=== PATIENT | male | born 1950 | race Caucasian/White ===

== ENCOUNTER → 2020-10-23 | Outpatient (CLI) | payer MEDICARE, OTHER ==
[~2020-10-23] MED LIST: ACIPHEX 20 MG T20 M1 PO; ADULT LOW DOSE81 MG PO; ALLEGRA180 MG PO; AVODART0.5 MG PO; C-500500 MG PO; CALCIUM 600 +1 EAC1 PO; CENTRUM SILVER1 EAC1 PO; COLACE100 MG PO; COQ-10100 MG PO; ENOXAPARIN30 MG/0.1 INJECTION; FISH OIL 1,0001 EAC7 PO; HYDROCODON-ACE1 EAC7 PO; HYTRIN 5 M5 MG/1 CAP PO; MAGNESIUM100 MG PO; NIACIN 500 MG500 M1 PO; OSTEO BI-FLEX1 EACH PO; POTASSIUM99 M1 PO; ROXICODONE5 M1 PO; SIMVASTATIN40 MG PO; TERAZOSIN HCL5 MG PO
[2020-10-23 10:08] LABS: ABSOLUTE EOSINOPHILS 0.2 thou/uL (0.0-0.7); ABSOLUTE LYMPHOCYTES 1.9 thou/uL (0.8-5.3); ABSOLUTE MONOCYTES 0.5 thou/uL (0.0-1.2); ABSOLUTE NEUTROPHILS 3.3 thou/uL (1.6-8.1); BASOPHILS 0.6 %; HEMATOCRIT 41.9 % (42.0-52.0); HEMOGLOBIN 14.1 gm/dL (14.0-18.0); LYMPHOCYTES 31.7 %; MCH 30.4 pg (26.0-34.0); MCHC 33.7 g/dL (28.0-37.0); MCV 90.1 fL (80.0-100.0); MONOCYTES 8.1 %; MPV 6.3 fl. (7.2-11.1); NUCLEATED RBCS 0 /100WBC; PLATELET COUNT* 241 thou/uL (150-400); POLYS 55.6 %; RBC 4.65 mil/uL (4.50-6.00); RDW-CV 13.8 % (10.5-14.5); WBC 5.9 thou/uL (4.0-11.0)
[2020-10-23 10:24] LABS: CALCIUM 9.5 mg/dL (8.5-10.1); CREATININE 1.1 mg/dL (0.6-1.3); POTASSIUM 4.3 mmol/L (3.5-5.1)
[2020-10-23 11:10] LABS: ESR (SEDRATE) 2 mm/hr (0-20)
--- NOTE | 2020-10-23 13:05 | EKG ---
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: : 1950 Requested By: Nathan Jack Order Number: [id number] Reading MD: Tacos Gray Measurements Intervals [place] Rate: 52 P: 52 ND: 166 QRS: 49 QRSD: 96 T: 31 QT: 431 QTc: 401 Interpretive Statements Sinus rhythm RSR' in V1 or V2, right VCD Compared to ECG 05/21/2012 09:41:29 RSR' in V1 or V2 now present Sinus bradycardia no longer present Electronically Signed On 10-23-2020 13:05:09 CDT by Tacos Gray [email or web address] <ELECTRONICALLY SIGNED> By: Tacos Gray MD, [facility] 10/23/20 1305 1017 1017 Tacos Gray MD, [facility] /EPI
== END ==
LOC: M.LAB 09:52
PROVIDERS: ATTEND Orthopaedic Surgery
DX: Z01.812 Encounter for preprocedural laboratory examination (principal); Z20.822 Contact with and (suspected) exposure to COVID-19; M17.12 Unilateral primary osteoarthritis, left knee; I49.9 Cardiac arrhythmia, unspecified

== ENCOUNTER 2020-10-30 06:15 | Inpatient (IN) | payer MEDICARE, OTHER ==
[~2020-10-30] VITALS: Ht 170.2 cm; Wt 79.4 kg
[~2020-10-30 06:15] MED LIST changes: -ACIPHEX 20 MG T20 M1 PO; +ACIPHEX 20 MG T20 MG PO; +ALLEGRA ALLERG180 MG PO; -ALLEGRA180 MG PO; -FISH OIL 1,0001 EAC7 PO; +FISH OIL 1,0001 EAC9 PO
[2020-10-30 11:06] VITALS: BP 106/58
[2020-10-30 16:56] VITALS: BP 112/62
[2020-10-30 21:00] VITALS: BP 112/68
[2020-10-31 00:10] VITALS: BP 121/63
[2020-10-31 04:33] VITALS: BP 114/71
[2020-10-31 05:48] LABS: HEMATOCRIT 36.3 % (42.0-52.0); HEMOGLOBIN 12.2 gm/dL (14.0-18.0); MCH 30.5 pg (26.0-34.0); MCHC 33.5 g/dL (28.0-37.0); MCV 91.1 fL (80.0-100.0); MPV 6.9 fl. (7.2-11.1); RBC 3.99 mil/uL (4.50-6.00)
[2020-10-31 06:11] LABS: ALBUMIN 3.3 g/dL (3.4-5.0); CREATININE 0.9 mg/dL (0.6-1.3); POTASSIUM 3.9 mmol/L (3.5-5.1); TOTAL BILIRUBIN 0.7 mg/dL (<0.1-1.0); TOTAL PROTEIN 6.3 g/dL (6.4-8.2)
[2020-10-31] MEDS ORDERED: MEDROLDOSEPACK PO (06:17)
[2020-10-31 07:50] VITALS: BP 134/64
[2020-10-31] MEDS ORDERED: COLACE100 MG PO (10:27)
[2020-10-31 15:31] VITALS: BP 117/67
[2020-10-31 20:24] VITALS: BP 137/69
[2020-11-01 04:33] LABS: HEMATOCRIT 31.2 % (42.0-52.0); MCH 31.5 pg (26.0-34.0); MCHC 35.1 g/dL (28.0-37.0); MCV 89.9 fL (80.0-100.0); MPV 6.3 fl. (7.2-11.1); RBC 3.47 mil/uL (4.50-6.00); RDW-CV 13.5 % (10.5-14.5); WBC 9.8 thou/uL (4.0-11.0)
[2020-11-01 05:16] LABS: ALBUMIN 2.9 g/dL (3.4-5.0); CALCIUM 8.3 mg/dL (8.5-10.1); CREATININE 0.9 mg/dL (0.6-1.3); POTASSIUM 4.4 mmol/L (3.5-5.1); TOTAL BILIRUBIN 0.7 mg/dL (<0.1-1.0); TOTAL PROTEIN 6.1 g/dL (6.4-8.2)
[2020-11-01 07:30] VITALS: BP 136/70
[2020-11-01 11:22] VITALS: BP 136/70
--- NOTE | 2020-11-01 13:58 | OP ---
[facility] [place] [address] [place] [address] OPERATIVE REPORT Name: AZUCENA IRBY Room: [address] IN M.R.#: [id number] Admission: 10/31/20 Attend Phys: Lalita Goodson Discharge: Date of : 50 Report #: [id number] THIS REPORT FOR: cc: Brice Sarah MD, Usman MD Orth, Charles DO ~ DICTATED BY: Nilesh Holcomb DO DATE OF SERVICE: 10/30/2020 PREOPERATIVE DIAGNOSIS: Severe degenerative joint disease, left knee. POSTOPERATIVE DIAGNOSIS: Severe degenerative joint disease, left knee. PROCEDURE PERFORMED: Left total knee arthroplasty utilizing Elena Persona total knee system with the following implant to a size listed: 1. Size 7 cemented, cruciate retained femoral component. 2. Size F cemented, keeled tibial baseplate. 3. A size 35 mm, all polyethylene cemented, tri-peg patellar component. 4. A #13 medial congruent polyethylene bearing. SURGEON: Nathan Jack DO FIRST ASSISTANTS: 1. Nilesh Holcomb DO 2. Kobe Gregg DO ANESTHESIA: Spinal with peripheral nerve block and intraoperative local anesthetic. ESTIMATED BLOOD LOSS: 100 mL. TOURNIQUET: 15 minutes at 300 mmHg. DRAINS: None. SPECIMENS: None. COMPLICATIONS: None. CONDITION: Stable to PACU. ANTIBIOTICS: 2 grams of Ancef given IV 1 hour prior to incision. DISPOSITION: PACU to medical surgical floor. [address] [address] OPERATIVE REPORT Name: AZUCENA IRBY Alexandrea Room: [address] M.R.#: [id number] Admission: 10/31/20 Attend Phys: Lalita Goodson Discharge: Date of : 50 Report #: [id number] INDICATIONS FOR PROCEDURE: The patient is a pleasant 70-year-old male who has ongoing pain and weakness to left knee. He had significant weakness, loss of range of motion and pain. This has been refractory to conservative measures of rest, ice, nonsteroidal anti-inflammatories, activity modification, corticosteroid injections for greater than 3 months. He was subsequently diagnosed with severe degenerative joint disease of the left knee with zund-bo-tdyr apposition in the medial compartment and fixed varus deformity. He was therefore recommended to undergo a left total knee arthroplasty. Therefore, the risks, benefits, treatment options, alternatives, and indications were discussed with the patient. Risks include but not limited to damage to surrounding neurovascular structures, continued pain, continued bleeding, need for repeat surgery, wound dehiscence, infection, DVT, PE, as well as inherent complications of anesthesia. The patient understands the risks and wishes to proceed with surgery. DESCRIPTION OF PROCEDURE: The patient was seen in the preoperative holding area where consent was obtained and signed. Left lower extremity was marked and initialed. He was then given the benefit of a peripheral nerve block and then transferred back to the operative suite and placed supine on the operating table. He was given benefit of spinal anesthetic and then left lower extremity was then placed in the appropriate leg holders or leg positioners. Left lower extremity was then well-padded. Tourniquet was applied to the left upper thigh and left lower extremity was then sterilely prepped utilizing Hibiclens scrub followed by alcohol rinse and ChloraPrep x 2 and then draped in normal sterile fashion. Timeout then had indicating appropriate patient, procedure to be performed, operative site, operating surgeon and preoperative antibiotics. All attendance were in agreeance. Next, surgery began with establishment of a standard midline incision centered over the tibial tubercle, centered the patella and approximately 3 fingerbreadths proximal to the patella. Subcutaneous flaps were then subsequently exposed and then a standard medial parapatellar arthrotomy was subsequently performed utilizing a second clean 10 blade scalpel. The medial periosteal sleeve was then subsequently elevated and then lateral joint line was then released with care to protect the patellar tendon. Next, patella was then everted and the knee was then flexed to 130 degrees. Anterior horn of the medial and lateral menisci were then subsequently excised ACL and PCL were successfully excised as well. As well a small portion of the infrapatellar fat pad adequate exposure of the lateral joint line. Next, a standard distal femoral entry drill was then placed into the anterior horn of the distal femur approximately 1 cm into the PCL and then driven intramedullary. Intramedullary guidewire was then subsequently placed with the distal femoral cutting block set to resect a 12 mm at 4 degrees of valgus cut angle. This was then pinned into position. A cut was made through the capture block. Bone fragments were then removed. Block was then removed. Pins were remained in place. Next, attention was directed to the tibial aspect where the [address] [address] OPERATIVE REPORT Name: AZUCENA IRBY Room: [address] M.R.#: [id number] Admission: 10/31/20 Attend Phys: Frederick PlasenciaLalita San Discharge: Date of : 50 Report #: [id number] extramedullary tibial alignment guide was then subsequently placed referencing the medial one-third tibial tubercle, center of the talus, tibial crest and second ray. This was then set to resect 2 mm off the low medial side and pinned into position with appropriate slope. Cut was then made through the capture block with care to protect the medial and lateral ligamentous structures as well as posterior capsule. Next, a tibial cut bone was then subsequently removed. Next, the knee was then brought out into full extension and was able to accommodate the 10 mm resection block. Therefore, knee was then brought back into 130 degrees of flexion. Pins were then subsequently removed and the femur was then sized to a size 7 with the anterior referencing block. Barclay was then placed under the medial footplate as there was significant loss of medial cartilage compared to the lateral aspect. Next, 30-degree external rotation drill holes were then subsequently drilled with the appropriate drill and then a 7 mm block was then malleted in appropriate position and pinned into place. Cuts were then made sequentially through the capture block with care to protect the medial and lateral collateral structures. Next block and excess bone were then subsequently removed. Then, the remnants of the medial and lateral meniscus was then subsequently excised. Tibia was then thoroughly cleansed and then a trial tibial baseplate was then placed in appropriate position of the sites after allowing excellent fit of the tibial baseplate with and it was pinned in appropriate rotation. Next, the trial femur was then subsequently placed in appropriate position and then multiple trial bearing was then subsequently trialled with a size 13 to allow full flexion and extension. Symmetric medial and lateral collateral are symmetric. Medial and lateral gaps were 3 mm anterior and posterior excursion at mid flexion. The knee was then brought out in full extension. Then, patella was then cut in a freehand fashion and then sized to a size 35 mm patella. The appropriate guide was then placed in appropriate position and 3 peg drill holes were then subsequently drilled through the capture guide. Trial component was then placed into position and then the knee was then taken through range of motion with excellent tracking of patella within the trochlear groove. Next, a trial patella poly and femur were then subsequently removed and the tibial baseplate was then prepared with the appropriate drill and then punched for the tibial keeled. Baseplate was then subsequently removed. Knee was then thoroughly irrigated with a pulse lavage while cement was mixed on the back table. A small posterior release was also performed at this time. Cement was then mixed and a small amount of cement was placed on the backside of the implant and it was then pressurized into the interstices of the bony cuts. Final implants were then malleted in appropriate position with excess cement cut and removed. Patella was then placed in appropriate position and held in place with a patellar clamp. A 13 mm trial bearing was subsequently placed and the knee was brought out into full extension and cement was allowed to harden. Just prior to cementing, the leg was then exsanguinated with an Esmarch and tourniquet was inflated to 300 mmHg. The tourniquet was elevated for approximately 15 minutes, which was the entirety of the cementing procedure. Once cement was fully cured, [place] [address] OPERATIVE REPORT Name: AZUCENA IRBY Room: [address] [facility]#: [id number] Admission: 10/31/20 Attend Phys: Lalita Goodson Discharge: Date of : 50 Report #: [id number] through range of motion. A 13 mm bearing was selected as the final bearing. Final bearing was then subsequently placed on the cleansed and dried tray and fully seated with a locking mechanism. Tourniquet was then let down. Hemostasis was obtained with direct pressure and electrocautery. The ____ capsule was then closed utilizing #1 Vicryl in gyidlc-cx-sptie interrupted fashion as well as #2 Ethibond in a uixgxc-dc-ejwbq interrupted fashion. The skin was then reprepped utilizing a small ChloraPrep and then skin closure with 2-0 Monocryl in inverted interrupted subcuticular stitches followed by cade. Then, a dressing of flexor was then applied followed by a OANH hose. Sponge and needle counts were correct x 2. The patient was then transferred back to PACU in normal stable condition. Dr. Jack was present for all critical aspects of the case. <ELECTRONICALLY SIGNED> By: Nathan Jack DO 11/01/20 1358 0932 1035Cchristianne Jack DO /nt
[2020-11-01 14:51] VITALS: BP 136/70
[2020-11-01 15:15] VITALS: BP 136/70
[2020-11-01 15:55] VITALS: BP 136/70
== END 2020-11-01 15:30 | disposition home or self-care (01) | DRG 470 ==
LOC: M.PRE → M.TBA 06:15 → M.ORTHSURG 11:02 → M.PRE 12:01 → EDSTATUS 15:14 → M.PRE 15:17 → M.ORTHSURG 10-31 15:13
PROVIDERS: ADMIT Internal Medicine; ATTEND Internal Medicine
PROC: 0SRD0J9 Replacement of Left Knee Joint with Synthetic Substitute, Cemented, Open Approach (ICD-10-PCS; principal; 2020-10-30)
DX: M17.12 Unilateral primary osteoarthritis, left knee (principal); Z96.651 Presence of right artificial knee joint; E78.00 Pure hypercholesterolemia, unspecified; R33.9 Retention of urine, unspecified; Z20.822 Contact with and (suspected) exposure to COVID-19; Z79.899 Other long term (current) drug therapy

== ENCOUNTER → 2020-12-21 | Day surgery (SDC) | payer MEDICARE, OTHER ==
[~2020-12-21] MED LIST changes: +MEDROLDOSEPACK PO
[2020-12-21 06:34] LABS: HEMATOCRIT 36.7 % (42.0-52.0); HEMOGLOBIN 12.3 gm/dL (14.0-18.0); MCH 30.2 pg (26.0-34.0); MCHC 33.7 g/dL (28.0-37.0); MCV 89.6 fL (80.0-100.0); MPV 6.5 fl. (7.2-11.1); RBC 4.1 mil/uL (4.50-6.00); RDW-CV 14.3 % (10.5-14.5); WBC 6.6 thou/uL (4.0-11.0)
[2020-12-21 06:52] LABS: CALCIUM 8.9 mg/dL (8.5-10.1); CREATININE 0.9 mg/dL (0.6-1.3); POTASSIUM 3.8 mmol/L (3.5-5.1)
--- NOTE | 2021-01-01 08:24 | OP ---
[address] [address] OPERATIVE REPORT Name: AZUCENA IRBY Room: [facility]#: [id number] Admission: 12/21/20 Attend Phys: Nathan Jack DO Discharge: Date of : 50 Report #: [id number] THIS REPORT FOR: cc: Brice Sarah MD, Usman MD Orth, Charles DO ~ DOC #: [id number] Jeremi Marroquin DO DATE OF SURGERY: 12/21/2020 PREOPERATIVE DIAGNOSIS: Left knee arthrofibrosis, status post total knee arthroplasty. POSTOPERATIVE DIAGNOSIS: Left knee arthrofibrosis, status post total knee arthroplasty. PROCEDURE: Left knee manipulation under anesthesia. SURGEON: Nathan Jack DO ANESTHESIOLOGIST: Jeremi Marroquin DO ANESTHESIA: General. FLUIDS: Crystalloid. ESTIMATED BLOOD LOSS: None. DRAINS: None. SPECIMENS: None. COMPLICATIONS: None. CONDITION: Stable. OUTCOME: PACU to home. PREOPERATIVE ANTIBIOTICS: None. INDICATIONS: The patient is a 70-year-old male who previously underwent a left total knee arthroplasty in the postoperative period. He went to physical therapy; however, he was having difficulty progressing with his range of motion and was seen in our orthopedic clinic. We discussed proceeding with a left knee manipulation. He had a similar incident on his right knee previously and did well with knee manipulation. We recommended proceeding with the same procedure [address] [place] [address] OPERATIVE REPORT Name: AZUCENA IRBY Room: [facility]#: [id number] Admission: 12/21/20 Attend Phys: Nathan Jack DO Discharge: Date of : 50 Report #: [id number] for the left knee manipulation under anesthesia. Risks, complications, and alternatives were discussed with the patient and elected to proceed. Please see clinic note for full details of that conversation. DESCRIPTION OF PROCEDURE: The patient was seen in the preoperative area. The operative site was marked, transferred to the operating suite, placed in supine position on the operating table. A timeout was performed verifying correct patient, procedure, and procedure site; all parties agreed. The patient was given the benefit of general anesthesia. Once the patient was adequately sedated, his left knee preprocedure range of motion was approximately 5 degrees to 90 degrees. His knee was then gently taken through range of motion and manipulated into flexion, extension several times. Eventually, range of motion was increased to 2-120 degrees of motion. C-arm images were then taken, AP and lateral views confirming no fracture. Again, the knee was ranged and range of motion was found to be 2-120 degrees. The patient was then awakened from anesthesia and transferred to PACU for recovery without complication. Dr. Nathan Jack was present for the entirety of the case. DO SUE Whitfield/TYRONE/CHERYL <ELECTRONICALLY SIGNED> By: Nathan Jack DO 01/01/21 0824 [id number] Jack DO /sunita
== END | disposition home or self-care (01) ==
LOC: M.SUR 05:59
PROVIDERS: ATTEND Orthopaedic Surgery
DX: M24.662 Ankylosis, left knee (principal); M17.12 Unilateral primary osteoarthritis, left knee; E78.00 Pure hypercholesterolemia, unspecified; Z96.653 Presence of artificial knee joint, bilateral; Z98.890 Other specified postprocedural states; Z79.899 Other long term (current) drug therapy; Z79.82 Long term (current) use of aspirin